=== PATIENT | male | born 1990 | race Two or more races ===

== ENCOUNTER 2023-03-12 07:22 | Emergency (ER) | payer OTHER ==
[~2023-03-12] VITALS: Ht 167.6 cm; Wt 68.9 kg
--- NOTE | 2023-03-12 07:30 | NUR ---
[id number] FOR COUGH CONGESTION X 2 DAYS.
--- NOTE | 2023-03-12 08:17 | NUR ---
RAPIF INFLU / COVID SWAB TAKEN SENT TO LAB
--- NOTE | 2023-03-12 09:30 | NUR ---
COVID POSITIVE PER LAB.
--- NOTE | 2023-03-12 10:25 | NUR ---
Patient discharged to home in stable condition. Written and verbal after care instructions given. Patient verbalizes understanding of instruction.
[2023-03-12 10:26] VITALS: BP 126/71
== END 2023-03-12 10:28 | disposition home or self-care (01) ==
LOC: ER 07:25
DX: U07.1 COVID-19 (principal)
CPT/HCPCS: 99285; 71045; 87426; 93005; 87804 ×2; C9803